=== PATIENT | male | born 1970 | race Two or more races ===

== ENCOUNTER 2021-02-25 18:57 | Emergency (ER) | payer OTHER ==
[~2021-02-25] VITALS: Ht 180.3 cm; Wt 104.3 kg
[~2021-02-25 18:57] MED LIST: IOPHEN DM-100 MG/5 M PO; LEVAQUIN750 MG PO
[2021-02-26] MEDS ORDERED: NAPROXEN375 MG PO (06:05)
[2021-02-26] MEDS ORDERED: INTESTINEX680 M1 PO (06:05)
[2021-02-26] MEDS ORDERED: CLINDAMYCIN HC300 MG PO (06:05)
== END 2021-02-26 06:56 | disposition home or self-care (01) ==
LOC: ER 18:57
DX: R07.0 Pain in throat (principal); Z03.818 Encounter for observation for suspected exposure to other biological agents ruled out